=== PATIENT | female | born 1955 | race African-American/Black ===

== ENCOUNTER 2018-09-18 12:09 | Emergency (ER) | payer BC ==
[~2018-09-18] VITALS: Ht 170.2 cm; Wt 75.0 kg
[~2018-09-18 12:09] MED LIST: ADVAIR DISK1 IN; CIPRO500 MG OR; COZAAR25 MG OR; FLEXERIL5 M1 PO; HYDROCHLOR12.5 MG/CA PO; HYZAAR1 TA1 PO; LISINOPRIL10 MG OR; LOSARTAN POTASS50 MG PO; NAPROSYN500 MG PO; PERCOCET 10/31 COMBO PO; PRILOSEC20 MG PO; PRILOSEC40 MG PO; PROVENTIL INH17 GM IN; ROBITUSSIN AC10 ML OR; SINGLAIR 4 MG TA4 MG OR; SOLU-MEDROL125 MG IM; TESSALON200 MG OR; catapres PO
[2018-09-18 13:28] LABS: URINE BILIRUBIN - DIPSTICK NEGATIVE (NEGATIVE); URINE BLOOD DIPSTICK NEGATIVE (NEGATIVE); URINE COLOR YELLOW; URINE GLUCOSE - DIPSTICK NEGATIVE (NEGATIVE); URINE KETONE NEGATIVE (NEGATIVE); URINE LEUK ESTERASE NEGATIVE (NEGATIVE); URINE NITRITE - DIPSTICK NEGATIVE (Negative); URINE PH 5.5 (4.5-8.0); URINE PROTEIN - DIPSTICK TRACE mg/dL (NEG-TRACE); URINE SPECIFIC GRAVITY >=1.030; URINE UROBILINOGEN - DIPSTICK 0.2 E.U./dL (0.2)
[2018-09-18 13:30] LABS: HEMATOCRIT 36.2 % (37.0-47.0); IMMATURE GRANULOCYTES 0.3 % (0.0-5.0); MEAN CELL VOLUME 96.3 fL CALC (80.0-100.0); MEAN CORPUSCULAR HGB 31.9 pG CALC (26.0-32.0); MEAN CORPUSCULAR HGB CONC 33.1 g/L CALC (32.0-36.0); NEUT# 1.98 thou/uL (2.00-7.15); RED BLOOD COUNT 3.76 mill/uL (4.20-5.60); RED CELL DISTRI WIDTH 13.2 % (11.5-15.5)
[2018-09-18 13:47] LABS: ALBUMIN 4.1 g/dL (3.2-5.0); ALKALINE PHOSPHATASE 105 u/l (38-126); ANION GAP 12 (6-22 (CALC)); BILIRUBIN, TOTAL 0.6 mg/dL (0.0-1.4); BUN 15 mg/dL (8-23); BUN/CREATININE RATIO 17 (12-20 (CALC)); CARBON DIOXIDE 26 mmol/l (22-30); CHLORIDE 107 mmol/l (95-108); CREATININE 0.9 mg/dL (0.5-1.0); GFR > 60 ML/MIN (>=60 (CALC)); GFR FOR AFR.AMER. > 60 ML/MIN (>=60 (CALC)); LIPASE 42 u/l (23-300); POTASSIUM 3.9 mmol/l (3.5-5.1); SGOT/AST 23 u/l (9-36); SODIUM 142 mmol/l (137-146); TOTAL PROTEIN 7.9 g/dL (6.3-8.2)
[2018-09-18] MEDS ORDERED: FOLIC ACID1 MG PO (14:47)
[2018-09-18] MEDS ORDERED: NIFEDIPINE10 M1 PO (14:47)
[2018-09-18] MEDS ORDERED: SINGULAIR10 MG PO (14:49)
[2018-09-18] MEDS ORDERED: BREO ELLIPTA1 INH IN (14:50)
[2018-09-18 15:41] VITALS: BP 188/86
== END 2018-09-18 15:41 | disposition home or self-care (01) | DRG 392 ==
LOC: ED 12:09
DX: R10.9 Unspecified abdominal pain (principal); I10 Essential (primary) hypertension; J45.909 Unspecified asthma, uncomplicated
CPT/HCPCS: Q9967

== ENCOUNTER 2023-11-01 06:14 | Emergency (ER) | payer MEDICARE ==
[~2023-11-01 06:14] MED LIST changes: +BREO ELLIPTA1 INH IN; +DOXY-CAPS100 MG PO; +FOLIC ACID1 MG PO; +NIFEDIPINE10 M1 PO; +SINGULAIR10 MG PO
== END 2023-11-01 06:54 | disposition left against medical advice (07) ==
LOC: ED 06:14 → LWOBS 06:54
DX: Z53.21 Procedure and treatment not carried out due to patient leaving prior to being seen by health care provider (principal)